=== PATIENT | male | born 1990 | race Caucasian/White ===

== ENCOUNTER 2017-03-10 04:07 | Emergency (ER) | payer SELFPAY ==
[~2017-03-10] VITALS: Ht 182.9 cm; Wt 73.0 kg
[2017-03-10 07:15] VITALS: BP 113/65
[2017-03-10] MEDS ORDERED: TETANUS, DIPHTHERIA, PERTUSSIS VAC/PF 0.5ML (>7YR OLD) IM ONE (07:15)
[2017-03-10] MEDS ORDERED: MORPHINE SULFATE 10 MG/ML CPJ IM ONE (07:15)
== END 2017-03-10 09:24 | disposition home or self-care (01) ==
LOC: ER 04:07
DX: S81.811A Laceration without foreign body, right lower leg, initial encounter (principal); S93.401A Sprain of unspecified ligament of right ankle, initial encounter; W45.8XXA Other foreign body or object entering through skin, initial encounter; Y93.89 Activity, other specified; Y92.89 Other specified places as the place of occurrence of the external cause; Y99.8 Other external cause status
CPT/HCPCS: 73590; 73610; 73630; 90471; 90715; 96372; 99284; J2270; Z7610